=== PATIENT | male | born 1975 | race Caucasian/White ===

== ENCOUNTER 2022-04-11 08:52 | Outpatient (CLI) | payer BC, SELFPAY ==
--- NOTE | ~2022-04-11 | US_ITS ---
EXAMINATION: US right upper quadrant DATE: 04/11/2022 09:48 INDICATION: ELEVATED LIVER ENZYMES TECHNIQUE: Multiple grayscale and Doppler ultrasound images of the right upper quadrant were obtained . COMPARISON: None available. FINDINGS: The visualized portions of the pancreas are normal. The liver is normal size with increased echogenicity and normal echotexture. No surface nodularity in standard views, high frequency probe v iews not obtained. Normal hepatopetal flow in the main portal vein. The gallbladder is normal with no abnormal wall thickening, pericholecystic fluid or stones. The common bile duct measures 3 mm. There was no sonographic Pena sign. Simple right kidney cyst. IMPRESSION: Echogenic liver, most commonly due to steatosis but also can be seen with hepatitis and fibrosis. Reviewed, dictated and finalized at location K. [facility] IMPRESSION: Echogenic liver, most commonly due to steatosis but also can be seen with hepat itis and fibrosis.
== END 2022-04-11 08:53 | disposition home or self-care (01) ==
LOC: CHSIMG 08:55
PROVIDERS: PCP Internal Medicine; Visit Provider Internal Medicine
DX: R94.5 Abnormal results of liver function studies (principal)
CPT/HCPCS: 76705

== ENCOUNTER 2022-04-15 07:51 | Outpatient (CLI) | payer BC, SELFPAY ==
--- NOTE | ~2022-04-15 | CT_ITS ---
CT Abdomen with contrast. History: Abnormal LFTs, hepatitis. Spiral CT of the abdomen was performed after the administration of intravenous contrast. 100 cc of Om nipaque 350 was administered intravenously without complication. Imaging was performed in the arteria l and portal venous phases. Dose reduction technique was used on this scan by utilizing automated exp osure control and iterative reconstruction technique. The dose-length product (DLP) was 1687.27 mGy-c m. Findings: Scans through the lung bases demonstrate mild atelectatic change. No hypervascular or otherwise enhancing/abnormal hepatic mass identified. Liver is unremarkable. The spleen, pancreas, gallbladder, adrenals and kidneys are within normal limits. No evidence of aortic aneurysm. No lymphadenopathy is seen. No aortic aneurysm seen. Visualized bowel loops are unremarkable. No ascites. Impression: Unremarkable liver. No significant abnormality seen. Reviewed, dictated and finalized at location [] [employer] MANAGER Impression: Unremarkable liver. No significant abnormality seen.
== END 2022-04-15 07:52 | disposition home or self-care (01) ==
LOC: CHSIMG 07:53
PROVIDERS: PCP Internal Medicine; Visit Provider Internal Medicine
DX: K75.9 Inflammatory liver disease, unspecified (principal); R74.01 Elevation of levels of liver transaminase levels
CPT/HCPCS: 74160; Q9967

== ENCOUNTER 2023-09-28 14:02 | Outpatient (CLI) | payer OTHER, SELFPAY ==
--- NOTE | ~2023-09-28 | XR_ITS ---
EXAMINATION: XR chest 2V 09/28/2023 14:41 INDICATION: Cough with fever PROCEDURE: 2 view chest COMPARISON: 04/09/2023 FINDINGS: The lungs are clear. The cardiomediastinal silhouette is within normal limits. There are no pleural effusions. There is no pneumothorax suspected. IMPRESSION: 1: NO ACUTE CARDIOPULMONARY DISEASE. Reviewed, dictated and finalized at location B.
[2023-09-28 14:26] LABS: Hematocrit 49.8 % (40.0-54.0); Hemoglobin 16.5 g/dL (14.0-18.0); Mean Corpuscular HGB Conc 33.1 g/dL (32-36); Mean Corpuscular Hemoglobin 29.5 pg (27.0-31.0); Mean Corpuscular Volume 88.9 fL (78.0-102.0); Mean Platelet Volume 8.5 fl (8.7-11.0); Platelet Count Result 201 K/mm3 (150-420); White Blood Count 7.5 K/mm3 (4.8-10.8)
[2023-09-28 15:02] LABS: Alanine Aminotransferase 49 U/L (16-63); Albumin Level 4.3 g/dL (3.4-5.0); Alkaline Phosphatase 91 U/L (46-116); Anion Gap 11 mmol/L (4-12); Aspartate Amino Transferase 27 U/L (15-37); Bilirubin,Total 0.6 mg/dL (0.00-1.00); Blood Urea Nitrogen 13 mg/dL (7-18); Calcium 10.5 mg/dL (8.5-10.1); Carbon Dioxide 29 mmol/L (21-32); Chloride 100 mmol/L (98-108); Estimated Glomerular Filt Rate > 60; Glucose 87 mg/dL (70-99); Osmolality Calculated 289 mOsm/kg (285-295); Potassium 4.3 mmol/L (3.5-5.1); Sodium 140 mmol/L (136-145); Total Protein 7.9 g/dL (6.4-8.2)
[2023-09-28 15:55] LABS: Band Neutrophils Percent 0 % (0-6); Basophils Absolute Manual 0.07 K/mm3 (0-0.1); Basophils Percent Manual 1 % (0-1); Eosinophils Percent Manual 0 % (1-6); Lymphocytes Absolute Manual 1.72 K/mm3 (1.1-4.5); Lymphocytes Percent Manual 23 % (18-44); Metamyelocytes Percent 0 %; Monocytes Absolute Manual 1.27 K/mm3 (0.1-0.90); Monocytes Percent Manual 17 % (3-9); Myelocytes Percent 0 %; Neutrophils Absolute Manual 4.42 K/mm3 (1.3-6.7); Neutrophils Percent Manual 59 % (46-73); Total Cells Counted 100
[2023-09-28 15:56] LABS: Platelet Estimate Adequate (Adequate); Promyelocytes Percent 0 %
== END 2023-09-28 14:03 | disposition home or self-care (01) ==
PROVIDERS: PCP Internal Medicine; Visit Provider Nurse Practitioner Family
DX: R05.8 Other specified cough (principal); R50.9 Fever, unspecified; R00.0 Tachycardia, unspecified
CPT/HCPCS: 36415; 71046; 80053; 85025